=== PATIENT | male | born 1980 | race African-American/Black ===

== ENCOUNTER 2020-02-17 04:59 | Emergency (ER) | payer OTHER ==
[2020-02-17 05:19] VITALS: BP 148/90; PULSE 92; TEMP 98.3; BMI 27.3
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
[2020-02-17] MEDS ORDERED: DIPHTH,PERTUSS(ACELL),TET 0.5 ML DISP.SYRIN IM ONE ×2 (05:33→06:03)
[2020-02-17] MEDS ORDERED: BACITRACIN 0.9 GM PACKET ONE (06:31)
== END 2020-02-17 06:41 | disposition home or self-care (01) ==
LOC: JER 04:59
PROC: 0CQ03ZZ Repair Upper Lip, Percutaneous Approach (ICD-10-PCS; principal; 2020-02-17)
PROC: 3E0234Z Introduction of Serum, Toxoid and Vaccine into Muscle, Percutaneous Approach (ICD-10-PCS; 2020-02-17)
DX: S00.83XA Contusion of other part of head, initial encounter (principal); S01.511A Laceration without foreign body of lip, initial encounter
CPT/HCPCS: 70450-TC; 70486-TC; 72125-TC; 90715; 99285-25

== ENCOUNTER 2020-02-22 22:48 | Emergency (ER) | payer OTHER ==
[2020-02-22 22:58] VITALS: BP 137/84; PULSE 70; TEMP 97.1; BMI 26.6
--- NOTE | 2020-02-22 23:16 | PDOC ---
Suture Removal/Wound Check HPI - History of Present Illness Chief Complaint: Suture/Staple Removal(Here) Stated Complaint: SUTURE Time Seen by Provider: 02/22/20 23:15 History Source: Yes: Patient, Old Records Exam Limitations: Yes: No Limitations Treated at: [facility] Date of Last ED visit: 02/17/20 - Previous ED Treatment Type of procedure performed on last visit: Yes: Laceration Repair Antibiotics Prescribed: No Past History - Medical History Allergies/Adverse Reactions: Allergies Allergy/AdvReac Type Severity Reaction Status Date / Time No Known Allergies Allergy Verified 02/22/20 22:56 COPD: No - Psycho-Social/Smoking History Smoking History: Never smoked Suture Removal/Wound Check PE - Physical Exam Laceration/Wound Check Symptoms: reports: None Current Severity Level: None Maximum Severity Level: None Pain Localization: None Location of Laceration/Wound: right: Lip (Lower) Pain Radiation: None *Review of Systems - Review of Systems Able to Perform ROS?: Yes All Other Systems: Reviewed and Negative *Physical Exam - Vital Signs Last Vital Signs Temp Pulse Resp BP Pulse Ox 97.1 F L 70 18 137/84 97 02/22/20 22:54 02/22/20 22:54 02/22/20 22:54 02/22/20 22:54 02/22/20 22:54 - Physical Exam General Appearance: Yes: Appropriately Dressed. No: Apparent Distress HEENT: positive: Normal ENT Inspection, Other (4 sutures present to the left lower lip. No signs or symptoms of infection. Wound is well-healed.) Medical Decision Making - Medical Decision Making 02/22/20 23:16 A/P: 40-year-old male for suture removal 4 simple interrupted Prolene sutures present to the left lower lip No signs or symptoms of infection present Wound is well approximated and well-healed 4 sutures removed without incident Discharge home Portions of this note have been documented using voice recognition software. As a result, errors may occur in the air conditioning manager process. Effort has been made to correct all grammatical and air conditioning manager error, but some may have been missed which may produce sporadic inaccurate air conditioning manager or nonsensical phrases. Discharge - Discharge Information Problems reviewed: Yes Clinical Impression/Diagnosis: Visit for suture removal Condition: Stable Disposition: HOME - Admission No - Follow up/Referral - Patient Discharge Instructions Patient Printed Discharge Instructions: DI for Suture Removal Additional Instructions: Rest, allow completion of healing May continue using bacitracin ointment until scabs are completely resolved Keep wound covered and out of the sun for at least one year as scar tissue will spanish moss picker and absorbable more sunlight causing a darker discoloration May use vitamin E, aloe, or other oils recommended for skin and scar healing - Post Discharge Activity
== END 2020-02-22 23:43 | disposition home or self-care (01) ==
LOC: JERFT 22:48 → JER 22:48 → JERFT 23:43
DX: Z48.02 Encounter for removal of sutures (principal)
CPT/HCPCS: 99281-25